=== PATIENT | female | born 1985 | race African-American/Black ===

== ENCOUNTER 2016-03-10 21:04 | Emergency (ER) | payer MEDICAID ==
[2016-03-10] MEDS ORDERED: LACTATED RINGER'S 1000 ML INJ 1,000 ML IV SCH (21:40)
[2016-03-10 22:36] LABS: BLOOD, URINE NEG (NEG); COMMENT (UR) CULT NOT INDICATED; CULTURE IF INDICATED CULT NOT INDICATED; GLUCOSE,URINE NEG (NEG); KETONE, URINE NEG (NEG); MUCUS URINE FEW /lpf (OCC); NITRITE,URINE NEG (NEG); PH, URINE 6.5 (5.0-8.5); SQUAMOUS EPITHELIAL CELL URINE 20 /hpf (0-5); URINE COLOR YELLOW (YELLW/STRAW)
--- NOTE | 2016-03-10 23:19 | PD ---
HPI Chief Complaint Abdominal pain mild shortness of breath Date Seen: Mar 10, 2016 Travel History International Travel<30 Days: No Contact w/Intl Traveler<30Days: No History of Present Illness HPI Patient is a 33 week intrauterine who presents complaining of lower abdominal pain and mild shortness of breath. Denies bleeding or ruptured membranes. He is active heart rate tracing is reactive and no regular contractions Para: 3 : 5 History Obstetric History Obstetric History 3 vag del Allergies-Medications (Allergen,Severity, Reaction): Coded Allergies: Codeine (Verified Allergy, Severe, 02/03/16) Review of Systems General / Constitutional: No: Fever, Weight Gain, Chills, Other Respiratory: Short of Breath Gastrointestinal: Abdominal Pain Physical Exam Narrative GENERAL: Well-nourished, well-developed patient. SKIN: Warm and dry. HEAD: Normocephalic and atraumatic. EYES: No scleral icterus. No injection or drainage. ENT: No nasal drainage noted. Mucous membranes pink. Airway patent. NECK: Supple, trachea midline. No JVD. CARDIOVASCULAR: Regular rate and rhythm without murmurs, gallops, or rubs. RESPIRATORY: Breath sounds equal bilaterally. No accessory muscle use. pulse ox 100 % BREASTS: Bilateral exam showed no masses , no retractions, no nipple discharge. ABDOMEN/GI: Abdomen soft, non-tender, bowel sounds present, no rebound, no guarding Gravid to [-33] weeks size Fundal Height: [-32 cm] GENITOURINARY: External Genitalia: intact and normal in appearance BUS glands: [-] Cervix: [post-] Dilatation: [-closed] Effacement: [thick-] Station: [-3 Presentation: [-] Membranes: [intact ] Uterine Contractions: [no reg-] FHT's: Category: [1-] Baseline: [-144] Reactive: [yes-] Variability: [-] Decels: [-none] EXTREMITIES: No cyanosis or edema. BACK: Nontender without obvious deformity. No CVA tenderness. NEUROLOGICAL: Awake and alert. Motor and sensory grossly within normal limits. Five out of 5 muscle strength in all muscle groups. Normal speech. Data Data Orders Urinalysis - C+S If Indicated (03/10/16 21:30) Vital Signs (Adult) .ON ADMISSION (03/10/16 21:40) ^ Labor Status (03/10/16 21:40) Lactated Ringer's 1000 Ml Inj (Lr 1000 M (03/10/16 21:40) Fentanyl Inj (Fentanyl Inj) (03/10/16 21:45) Labs Laboratory Tests Test 03/10/16 21:18 Urine Color YELLOW Urine Turbidity HAZY Urine pH 6.5 Urine Specific [place] 1.012 Urine Protein TRACE Urine Glucose (UA) NEG Urine Ketones NEG Urine Occult Blood NEG Urine Nitrite NEG Urine Bilirubin NEG Urine Urobilinogen LESS THAN 2.0 Urine Leukocyte Esterase MOD Urine RBC 4 Urine WBC 1 Urine Squamous Epithelial 20 Cells Urine Mucus FEW Microscopic Urinalysis Comment CULT NOT INDICATED MDM Interpretation(s) 33 week intrauterine with lower abdominal pain and mild shortness of breath no bleeding or ruptured membranes. She has a negative workup tonight urinalysis is negative. The heart rate tracing is reactive and there are no regular contractions appears to be in no significant pain. Plan Patient drove herself so no way to give her any narcotic pain medication she' ll drive herself home, she is to be discharged use Tylenol 1-2 by mouth liberally for pain increase her fluid intake heating pad and or hot bath bed rest being kuhn Diagnosis Diagnosis: Primary Impression: Abdominal pain during in third trimester Additional Impression: Gestational dyspnea Disposition: 01 DISCHARGE HOME Condition: Stable Patient Instructions: General Instructions, Labor (ED), Movement (ED), Abdominal Pain in (ED) Departure Forms: Tests/Procedures Dieter Salas II, MD Mar 10, 2016 23:19
== END 2016-03-11 | disposition home or self-care (01) ==
LOC: HOBED 21:04
DX: O26.893 Other specified pregnancy related conditions, third trimester (principal); R10.30 Lower abdominal pain, unspecified; R06.09 Other forms of dyspnea; Z3A.33 33 weeks gestation of pregnancy
CPT/HCPCS: 59025; 81001; 99284; J7120

== ENCOUNTER 2016-03-16 23:15 | Emergency (ER) | payer MEDICAID ==
[2016-03-17] MEDS ORDERED: LACTATED RINGER'S 1000 ML INJ 1,000 ML IV SCH (00:02)
[2016-03-17] MEDS ORDERED: TERBUTALINE INJ 1 MG/ML AMP SQ PRN (00:15)
[2016-03-17 00:34] LABS: BLOOD, URINE NEG (NEG); COMMENT (UR) CULTURE INDICATED; CULTURE IF INDICATED CULTURE INDICATED; GLUCOSE,URINE NEG (NEG); KETONE, URINE NEG (NEG); NITRITE,URINE NEG (NEG); SQUAMOUS EPITHELIAL CELL URINE 9 /hpf (0-5); URINE COLOR LIGHT-YELLOW (YELLW/STRAW)
[2016-03-17 00:37] LABS: AMPHETAMINE, URINE NEG (NEG); BARBITURATES, URINE NEG (NEG); COCAINE, URINE NEG (NEG)
[2016-03-17] MEDS ORDERED: MACR100C2 PO (01:06)
--- NOTE | 2016-03-17 09:32 | PD ---
HPI Chief Complaint Lower abdominal pain Travel History International Travel<30 Days: No Contact w/Intl Traveler<30Days: No History of Present Illness HPI Patient is 29 week intrauterine previous presents complaining of lower abdominal pain for several days. Denies bleeding rupture the membranes. Baby is active and heart rate tracing is reactive. There are no contractions Para: 1 : 2 History Past Surgical History Narrative Surgical Previous Social History Alcohol Use: No Tobacco Use: No Substance Abuse: No Allergies-Medications (Allergen,Severity, Reaction): Coded Allergies: Codeine (Verified Allergy, Severe, 02/03/16) Home Meds Active Scripts Nitrofurantoin Monohydrate Macrocrystals (Macrobid)100 Mg [id number] Mg PO BID #14 CAP Ref 0 Prov:Dieter Salas II, MD 03/17/16 Review of Systems Gastrointestinal: Abdominal Pain Physical Exam Narrative GENERAL: Well-nourished, well-developed patient.obese SKIN: Warm and dry. HEAD: Normocephalic and atraumatic. EYES: No scleral icterus. No injection or drainage. ENT: No nasal drainage noted. Mucous membranes pink. Airway patent. NECK: Supple, trachea midline. No JVD. CARDIOVASCULAR: Regular rate and rhythm without murmurs, gallops, or rubs. RESPIRATORY: Breath sounds equal bilaterally. No accessory muscle use. BREASTS: Bilateral exam showed no masses , no retractions, no nipple discharge. ABDOMEN/GI: Abdomen soft, non-tender, bowel sounds present, no rebound, no guarding Gravid to [34-] weeks size Fundal Height: [34 cm-] GENITOURINARY: External Genitalia: intact and normal in appearance BUS glands: [-] Cervix: [-]post Dilatation: [0-] Effacement: [-0] Station: [-3] Presentation: [-] Membranes: [intact ] amnio sure negative Uterine Contractions: [-none] FHT's: Category: [1-] Baseline: [144-] Reactive: [-yes] Variability: [mod-] Decels: [none] EXTREMITIES: No cyanosis or edema. BACK: Nontender without obvious deformity. No CVA tenderness. NEUROLOGICAL: Awake and alert. Motor and sensory grossly within normal limits. Five out of 5 muscle strength in all muscle groups. Normal speech. Data Data Orders Vital Signs (Adult) .ON ADMISSION (03/17/16 00:02) ^ Labor Status (03/17/16 00:02) Urinalysis - C+S If Indicated (03/17/16 00:02) Lactated Ringer's 1000 Ml Inj (Lr 1000 M (03/17/16 00:02) Ob/Psych Drug Screen, Urine (03/17/16 00:02) Terbutaline Inj (Brethine Inj) (03/17/16 00:15) Fentanyl Inj (Fentanyl Inj) (03/17/16 00:15) Urine Culture (03/16/16 23:35) Ur Bath Salts (03/16/16 23:35) Ur Heroin (03/16/16 23:35) Ur K2 Spice (03/16/16 23:35) Ur Ecstasy (03/16/16 23:35) Ur Methadone (03/16/16 23:35) Phencyclidine Urine (Pcp) (03/16/16 23:35) Fentanyl Inj (Fentanyl Inj) (03/17/16 01:00) Labs Laboratory Tests Test 03/16/16 23:35 Urine Color LIGHT-YELLOW Urine Turbidity HAZY Urine pH 7.0 Urine Specific [place] 1.010 Urine Protein NEG Urine Glucose (UA) NEG Urine Ketones NEG Urine Occult Blood NEG Urine Nitrite NEG Urine Bilirubin NEG Urine Urobilinogen 2.0 Urine Leukocyte Esterase LARGE Urine RBC 2 Urine WBC 15 Urine Squamous Epithelial 9 Cells Microscopic Urinalysis Comment CULTURE INDICATED Urine Opiates Screen NEG Urine Barbiturates Screen NEG Urine Amphetamines Screen NEG Urine Benzodiazepines Screen NEG Urine Cocaine Screen NEG Urine Cannabinoids Screen NEG Date/Time Procedure Status Source Growth 03/16/16 23:35 Urine Culture Received Urine Clean Catch Pending MDM Interpretation(s) 29 week intrauterine previous presents complaining pains no bleeding or rupture the membranes analysis consistent with UTI heart rate tracing within normal limits no contractions Plan Have patient begin oral antibiotics and increase her oral fluid intake increase bedrest at home and return for any further or worsening problems Diagnosis Diagnosis: Primary Impression: Abdominal pain during in third trimester Additional Impression: UTI (urinary tract infection) during Disposition: DISCHARGE HOME Condition: Stable Scripts Nitrofurantoin Monohydrate Macrocrystals (Macrobid)100 Mg [id number] Mg PO BID #14 CAP Ref 0 Prov:Dieter Salas II, MD 03/17/16 Patient Instructions: General Instructions Departure Forms: Tests/Procedures Dieter Salas II, MD Mar 17, 2016 09:32
[2016-03-21 13:05] LABS: BATH SALTS (MDPV) UR NEG (NEG); ECSTASY (MDMA) UR NEG (NEG); HEROIN (6-ACETYLMORPHINE) UR NEG (NEG); K2 SPICE UR NEG (NEG); OBMETHADONE UR NEG (NEG); OXYCODONE (PERCODAN) NEG (NEG); PHENCYCLIDINE URINE NEG (NEG)
== END 2016-03-17 06:45 | disposition home or self-care (01) ==
LOC: HOBED 23:15
DX: O26.893 Other specified pregnancy related conditions, third trimester (principal); R10.30 Lower abdominal pain, unspecified; O23.43 Unspecified infection of urinary tract in pregnancy, third trimester; O34.219 Maternal care for unspecified type scar from previous cesarean delivery; Z3A.29 29 weeks gestation of pregnancy
CPT/HCPCS: 59025; 80307; 81001; 87086; 96361; 96372; 96374; 99284; G0481; J3105; J7120

== ENCOUNTER 2016-05-16 12:44 | Emergency (ER) | payer MEDICAID, OTHER ==
[~2016-05-16] VITALS: Ht 157.5 cm; Wt 90.0 kg
[~2016-05-16 12:44] MED LIST: MACR100C2 PO
[2016-05-16 12:46] VITALS: BP 131/70; PULSE 126; RESP 18; TEMP 100.7; O2SAT 98
[2016-05-16 13:35] VITALS: BP 110/74; PULSE 108; PULSE 111; RESP 18; O2SAT 98
--- NOTE | 2016-05-16 13:38 | PD ---
HPI Chief Complaint: Cold / Flu Symptoms Time Seen by Provider: 13:38 Travel History International Travel<30 days: No Contact w/Intl Traveler<30days: No Traveled to known affect area: No History of Present Illness HPI 30-year-old female with history of asthma presents to emergency department for evaluation of cough, chest congestion, fever, chills, sore throat, myalgias worsening over the last 3-4 days. He also reports nausea, vomiting, diarrhea. States she's been unable to keep any food down today. Denies any abdominal pain. No chest pain or tightness. No hematochezia or hematemesis. No other symptoms to report. PFSH Past Medical History Asthma: Yes ?: Not LMP: RECENT DELIVERY Social History Alcohol Use: No Tobacco Use: No Allergies-Medications (Allergen,Severity, Reaction): Coded Allergies: Codeine (Verified Allergy, Severe, 05/16/16) Reported Meds & Prescriptions Reported Meds & Active Scripts Active Prednisone 50 Mg Tab 50 Mg PO DAILY 5 Days Albuterol Neb (Albuterol Sulfate) 2.5 Mg/3 Ml Neb 2.5 Mg NEB Q4HR NEB PRN Zofran Odt (Ondansetron Odt) 4 Mg Tab 4 Mg SL Q6HR PRN Review of Systems Except as stated in HPI: all other systems reviewed are Neg Physical Exam Narrative GENERAL: Well nourished female pt, in no acute distress SKIN: Warm and dry. HEAD: Atraumatic. Normocephalic. EYES: Pupils equal and round. No scleral icterus. No injection or drainage. ENT: No nasal bleeding or discharge. Erythematous pharynx without exudate. Mucous membranes pink and moist. NECK: Trachea midline. No JVD. CARDIOVASCULAR: Tachycardic rate and rhythm. RESPIRATORY: No accessory muscle use. Diminished; inspiratory and expiratory wheeze to auscultation. Breath sounds equal bilaterally. GASTROINTESTINAL: Abdomen soft, non-tender, nondistended. Hepatic and splenic margins not palpable. MUSCULOSKELETAL: Extremities without clubbing, cyanosis, or edema. No obvious deformities. NEUROLOGICAL: Awake and alert. No obvious cranial nerve deficits. Motor grossly within normal limits. Five out of 5 muscle strength in the arms and legs. Normal speech. PSYCHIATRIC: Appropriate mood and affect; insight and judgment normal. Data Data Last Documented VS Vital Signs Date Time Temp Pulse Resp B/P Pulse Ox O2 Delivery O2 Flow Rate FiO2 05/16/16 16:30 100 18 105/67 98 Room Air 05/16/16 14:35 99.4 Orders Complete Blood Count With Diff (05/16/16 13:34) Urinalysis - C+S If Indicated (05/16/16 13:34) Chest, Single Ap (05/16/16 13:34) Blood Glucose (05/16/16 13:34) Ecg Monitoring (05/16/16 13:34) Iv Access Insert/Monitor (05/16/16 13:34) Oximetry (05/16/16 13:34) Oxygen Administration (05/16/16 13:34) Basic Metabolic Panel (Bmp) (05/16/16 13:34) Sodium Chlor 0.9% 1000 Ml Inj (Ns 1000 M (05/16/16 13:45) Ed Urine Pregnancytest Poc (05/16/16 13:34) Acetaminophen (Tylenol) (05/16/16 13:45) Influenzae A/B Antigen (05/16/16 13:34) Methylprednisolone So Succ Inj (Solumedr (05/16/16 13:45) Ondansetron Inj (Zofran Inj) (05/16/16 14:00) Group A Rapid Strep Screen (05/16/16 13:59) Ondansetron Inj (Zofran Inj) (05/16/16 13:59) Albuterol-Ipratropium Neb (Duoneb Neb) (05/16/16 14:30) Strep Culture (Group A) (05/16/16 13:55) Urine Culture (05/16/16 14:35) Labs Laboratory Tests Test 05/16/16 05/16/16 13:55 14:35 White Blood Count 6.9 TH/MM3 Red Blood Count 4.52 MIL/MM3 Hemoglobin 11.7 GM/DL Hematocrit 35.9 % Mean Corpuscular Volume 79.4 FL Mean Corpuscular Hemoglobin 25.8 PG Mean Corpuscular Hemoglobin 32.5 % Concent Red Cell Distribution Width 17.1 % Platelet Count 273 TH/MM3 Mean Platelet Volume 8.4 FL Neutrophils (%) (Auto) 66.9 % Lymphocytes (%) (Auto) 21.1 % Monocytes (%) (Auto) 10.8 % Eosinophils (%) (Auto) 0.8 % Basophils (%) (Auto) 0.4 % Neutrophils # (Auto) 4.6 TH/MM3 Lymphocytes # (Auto) 1.4 TH/MM3 Monocytes # (Auto) 0.7 TH/MM3 Eosinophils # (Auto) 0.1 TH/MM3 Basophils # (Auto) 0.0 TH/MM3 CBC Comment DIFF FINAL Differential Comment Sodium Level 142 MEQ/L Potassium Level 3.7 MEQ/L Chloride Level 108 MEQ/L Carbon Dioxide Level 25.6 MEQ/L Anion Gap 8 MEQ/L Blood Urea Nitrogen 8 MG/DL Creatinine 0.89 MG/DL Estimat Glomerular Filtration 90 ML/MIN Rate Random Glucose 84 MG/DL Calcium Level 8.4 MG/DL Urine Color YELLOW Urine Turbidity HAZY Urine pH 6.0 Urine Specific [place] 1.032 Urine Protein 30 mg/dL Urine Glucose (UA) NEG mg/dL Urine Ketones NEG mg/dL Urine Occult Blood TRACE Urine Nitrite NEG Urine Bilirubin NEG Urine Urobilinogen LESS THAN 2.0 MG/DL Urine Leukocyte Esterase LARGE Urine RBC 7 /hpf Urine WBC 23 /hpf Urine Squamous Epithelial 5 /hpf Cells Urine Bacteria OCC /hpf Urine Hyaline Casts 1 /lpf Urine Mucus MANY /lpf Microscopic Urinalysis Comment CATH-CULTURE IND MDM Medical Decision Making Medical Screen Exam Complete: Yes Emergency Medical Condition: Yes Medical Record Reviewed: Yes Differential Diagnosis influenza vs pneumonia vs gastroenteritis vs asthma exacerbation Narrative Course 30-year-old female presents to emergency department for evaluation of flulike symptoms. Lab work is without acute concern. Urinalysis is with 30 proteinuria , large leukocyte esterase, 7 RBC, 23 WBD, occasional bacteria; culture is indicated. Pt will be started on keflex po for UTI; she is given IVF and zofran and duo neb. Verbalized improvement in symptoms. She will be discharged to follow up with a primary care provider. She agrees to return with any acute worsening of symptoms Diagnosis Primary Impression: Flu-like symptoms Additional Impressions: Asthma exacerbation UTI (urinary tract infection) Qualified Code: N39.0 - Urinary tract infection without hematuria, site unspecified Referrals: Primary Care Physician Patient Instructions: General Instructions, Influenza (DC) Departure Forms: Tests/Procedures, Work Release Enter return to work date: May 20, 2016 Additional Instructions: Rest Maintain adequate oral hydration Follow up with your primary care provider Tylenol or ibuprofen as directed on the package as needed for fever Return to ED with acute worsening of symptoms Med/Other Pt SpecificInfo: Prescription(s) given Scripts Cephalexin (Keflex)500 Mg Pyd685 Mg PO Q12H 7 Days Ref 0 Prov:Jenna Perkins 05/16/16 Prednisone 50 Mg Tab50 Mg PO DAILY 5 Days Ref 0 Prov:Jenan Perkins 05/16/16 Albuterol Neb 2.5 Mg/3 Ml Neb2.5 Mg NEB Q4HR NEB PRN (SHORTNESS OF BREATH) #60 NEBULE Ref 0 Prov:Jenna Perkins 05/16/16 Ondansetron Odt (Zofran Odt)4 Mg Tab4 Mg SL Q6HR PRN (Nausea/Vomiting) #15 TAB Ref 0 Prov:Jenna Perkins 05/16/16 Disposition: 01 DISCHARGE HOME Condition: Stable Jenna Perkins May 16, 2016 13:38
[2016-05-16] MEDS ORDERED: ACETAMINOPHEN 500 MG CPLT PO ONE (13:45)
[2016-05-16] MEDS ORDERED: methylPREDNISolone SOD SUCC 125 MG/2 ML VIAL IV PUSH ONE (13:45)
[2016-05-16] MEDS ORDERED: SODIUM CHLOR 0.9% 1000 ML INJ 1,000 ML IV ONE (13:45)
[2016-05-16] MEDS ORDERED: ONDANSETRON HCL 4 MG/2 ML VIAL ONE (13:59)
[2016-05-16] MEDS ORDERED: ONDANSETRON HCL 4 MG/2 ML VIAL IV PUSH ONE (14:00)
[2016-05-16 14:14] LABS: AUTOMATED NEUTROPHIL # 4.6 TH/MM3 (1.8-7.7); BASOPHIL % 0.4 % (0.0-2.0); EOSINOPHIL # 0.1 TH/MM3 (0-0.4); EOSINOPHIL % 0.8 % (0.0-4.0); HEMATOCRIT 35.9 % (35.0-46.0); HEMO FLAGS DIFF FINAL; LYMPH % 21.1 % (9.0-44.0); LYMPHOCYTE # 1.4 TH/MM3 (1.0-4.8); MEAN CELL VOLUME 79.4 FL (80.0-100.0); MEAN CORPUSCULAR HEMOGLOBIN 25.8 PG (27.0-34.0); MEAN CORPUSCULAR HGB CONC 32.5 % (32.0-36.0); MONO % 10.8 % (0.0-8.0); NEUT % 66.9 % (16.0-70.0); PLATELET COUNT 273 TH/MM3 (150-450); RED BLOOD COUNT 4.52 MIL/MM3 (4.00-5.30); RED CELL DISTRIBUTION WIDTH 17.1 % (11.6-17.2); WHITE BLOOD COUNT 6.9 TH/MM3 (4.0-11.0)
[2016-05-16] MEDS ORDERED: RESP: ALBUTEROL 2.5 MG/IPRATROPIUM 0.5 MG NEB (SCH) NEB ONE (14:30)
--- NOTE | 2016-05-16 14:30 | RADRPT ---
EXAM DATE/TIME: 05/16/2016 13:40 [facility] COMPARISON: No previous studies available for comparison. INDICATIONS : Patient has had flu like symptoms for three days. She has also been short of breath. MEDICAL HISTORY : None. SURGICAL HISTORY : None. ENCOUNTER: Initial ACUITY: 3 days PAIN SCORE: 0/10 LOCATION: chest FINDINGS: A single view of the chest demonstrates the lungs to be symmetrically aerated without evidence of mas s, infiltrate or effusion. The cardiomediastinal contours are unremarkable. Osseous structures are intact. CONCLUSION: No acute disease. Kj Bolton MD on May 16, 2016 at 14:29 Board Certified Radiologist. This report was verified electronically.
[2016-05-16 14:31] LABS: BICARBONATE 25.6 MEQ/L (21.0-32.0); POTASSIUM 3.7 MEQ/L (3.5-5.1)
[2016-05-16 14:35] VITALS: BP 103/63; PULSE 102; RESP 18; TEMP 99.4; O2SAT 98
[2016-05-16 15:09] LABS: BACTERIA, URINE OCC /hpf; BLOOD, URINE TRACE (NEG); COMMENT (UR) CATH-CULTURE IND; CULTURE IF INDICATED CATH CULTURE IND; GLUCOSE,URINE NEG (NEG); HYALINE CAST, URINE 1 /lpf (RARE); KETONE, URINE NEG (NEG); MUCUS URINE MANY /lpf (OCC); NITRITE,URINE NEG (NEG); SQUAMOUS EPITHELIAL CELL URINE 5 /hpf (0-5); URINE COLOR YELLOW (YELLW/STRAW)
[2016-05-16] MEDS ORDERED: ZOFR4TAB3 SL (15:23)
[2016-05-16] MEDS ORDERED: ALBU0.08 NEB (15:25)
[2016-05-16] MEDS ORDERED: PRED50 PO (15:26)
[2016-05-16 16:30] VITALS: BP 105/67; PULSE 100; RESP 18; O2SAT 98
[2016-05-16] MEDS ORDERED: CEPH-460 PO (20:20)
== END 2016-05-16 16:31 | disposition home or self-care (01) ==
LOC: NEPC 12:44
DX: J45.901 Unspecified asthma with (acute) exacerbation (principal); N39.0 Urinary tract infection, site not specified; B96.89 Other specified bacterial agents as the cause of diseases classified elsewhere
CPT/HCPCS: 71010; 80048; 81001; 84703; 85025; 87081; 87086; 87804; 87880; 94664; 96361; 96374; 96375; 99283; J2405; J2930; J7030

== ENCOUNTER 2017-05-30 10:04 | Emergency (ER) | payer OTHER ==
[~2017-05-30 10:04] MED LIST changes: +ALBU0.08 NEB; +CEPH-460 PO; -MACR100C2 PO; +PRED50 PO; +ZOFR4TAB3 SL
[2017-05-30 10:17] VITALS: BP 126/59; PULSE 87; RESP 16; TEMP 98.2; O2SAT 100
[2017-05-30] MEDS ORDERED: SODIUM CHLORIDE 0.9% FLUSH 10 ML FLUSH IV FLUSH PRN (12:30)
--- NOTE | 2017-05-30 12:59 | PD ---
HPI Chief Complaint: Related Problem Time Seen by Provider: 12:28 Travel History International Travel<30 days: No Contact w/Intl Traveler<30days: No Traveled to known affect area: No History of Present Illness HPI Patient 31-year-old female presents emergency department early gestation probably 7-8 weeks gestational age by last menstrual. For evaluation of low pelvic pain. Patient denies any vaginal bleeding vaginal discharge or loss of fluid. She has not had an ultrasound yet this is not established with an [employer] INST[employer]ER. Non-smoker nondrinker. States the pain is cramping, mild to moderate, context as above, associated signs and symptoms as above PFSH Past Medical History Asthma: Yes ?: LMP: 04/11/17 : 5 Para: 4 Miscarriage: 1 : 0 Past Surgical History Abdominal Surgery: Yes (REMOVAL OF GALLSTONES) Social History Alcohol Use: No Tobacco Use: No Substance Use: No Allergies-Medications (Allergen,Severity, Reaction): Coded Allergies: codeine (Unverified Allergy, Severe, 10/22/16) Reported Meds & Prescriptions Reported Meds & Active Scripts Active One Tablet ( Vit #108/Iron/FA) 30 Mg Iron-800 Mcg Tablet 1 Tab PO DAILY 30 Days Metrogel Vaginal Gel (Metronidazole Vaginal Gel) 0.75 % Gel 1 Appl VAGINAL HS 7 Days Macrobid (Nitrofurantoin Monoh/Nitrofur Macro) 100 Mg Cap 100 Mg PO BID 7 Days Keflex (Cephalexin) 500 Mg Cap 500 Mg PO Q12H 7 Days Prednisone 50 Mg Tab 50 Mg PO DAILY 5 Days Albuterol Neb (Albuterol Sulfate) 2.5 Mg/3 Ml Neb 2.5 Mg NEB Q4HR NEB PRN Zofran Odt (Ondansetron Odt) 4 Mg Tab 4 Mg SL Q6HR PRN Review of Systems Except as stated in HPI: all other systems reviewed are Neg Physical Exam Narrative GENERAL: Well-developed well-nourished, minimal discomfort SKIN: Focused skin assessment warm/dry. HEAD: Atraumatic. Normocephalic. EYES: Pupils equal and round. No scleral icterus. No injection or drainage. ENT: No nasal bleeding or discharge. Mucous membranes pink and moist. NECK: Trachea midline. No JVD. CARDIOVASCULAR: Regular rate and rhythm. No murmur appreciated. RESPIRATORY: No accessory muscle use. Clear to auscultation. Breath sounds equal bilaterally. GASTROINTESTINAL: Abdomen soft, non-tender, nondistended. Hepatic and splenic margins not palpable. . GENITOURINARY: Exam performed with female nurse trust officer present all times, no vaginal lesion no vaginal bleeding, cervix is closed, no cervical motion tenderness no bimanual tenderness, there was a moderate amount of discharge which is white and smooth consistent with BV. MUSCULOSKELETAL: No obvious deformities. No clubbing. No cyanosis. No edema. NEUROLOGICAL: Awake and alert. No obvious cranial nerve deficits. Motor grossly within normal limits. Normal speech. PSYCHIATRIC: Appropriate mood and affect; insight and judgment normal. Data Data Last Documented VS Vital Signs Date Time Temp Pulse Resp B/P (MAP) Pulse Ox O2 Delivery O2 Flow Rate FiO2 05/30/17 13:08 98 Room Air 05/30/17 10:17 98.2 87 16 126/59 (81) Orders Orders Beta Hcg (Quant/Titer) (05/30/17 12:28) Complete Blood Count With Diff (05/30/17 12:28) Comprehensive Metabolic Panel (05/30/17 12:28) Prothrombin Time / Inr (Pt) (05/30/17 12:28) Act Partial Throm Time (Ptt) (05/30/17 12:28) Urinalysis - C+S If Indicated (05/30/17 12:28) Iv Access Insert/Monitor (05/30/17 12:28) Ecg Monitoring (05/30/17 12:28) Oximetry (05/30/17 12:28) Sodium Chloride 0.9% Flush (Ns Flush) (05/30/17 12:30) Ed Urine Pregnancytest Poc (05/30/17 12:28) Wet Prep Profile (05/30/17 12:28) Gc And Chlamydia Pcr (05/30/17 12:28) Abo/Rh Blood Type (05/30/17 12:28) Urine Culture (05/30/17 12:45) Us Pelvis (Ques Preg/Ectopic) (05/30/17 13:13) Ed Discharge Order (05/30/17 15:56) Labs Laboratory Tests Test 05/30/17 12:45 05/30/17 12:59 White Blood Count 11.6 TH/MM3 Red Blood Count 4.36 MIL/MM3 Hemoglobin 13.3 GM/DL Hematocrit 38.2 % Mean Corpuscular Volume 87.5 FL Mean Corpuscular Hemoglobin 30.4 PG Mean Corpuscular Hemoglobin Concent 34.7 % Red Cell Distribution Width 14.3 % Platelet Count 297 TH/MM3 Mean Platelet Volume 8.2 FL Neutrophils (%) (Auto) 71.8 % Lymphocytes (%) (Auto) 21.2 % Monocytes (%) (Auto) 4.8 % Eosinophils (%) (Auto) 1.6 % Basophils (%) (Auto) 0.6 % Neutrophils # (Auto) 8.3 TH/MM3 Lymphocytes # (Auto) 2.5 TH/MM3 Monocytes # (Auto) 0.6 TH/MM3 Eosinophils # (Auto) 0.2 TH/MM3 Basophils # (Auto) 0.1 TH/MM3 CBC Comment DIFF FINAL Differential Comment Prothrombin Time 10.0 SEC Prothromb Time International Ratio 1.0 RATIO Activated Partial Thromboplast Time 25.3 SEC Urine Color LIGHT-YELLOW Urine Turbidity HAZY Urine pH 6.5 Urine Specific [place] 1.005 Urine Protein NEG mg/dL Urine Glucose (UA) NEG mg/dL Urine Ketones NEG mg/dL Urine Occult Blood NEG Urine Nitrite NEG Urine Bilirubin NEG Urine Urobilinogen LESS THAN 2.0 MG/DL Urine Leukocyte Esterase LARGE Urine RBC 13 /hpf Urine WBC 10 /hpf Urine Squamous Epithelial Cells 17 /hpf Urine Bacteria FEW /hpf Microscopic Urinalysis Comment CULTURE INDICATED Blood Urea Nitrogen 5 MG/DL Creatinine 0.68 MG/DL Random Glucose 81 MG/DL Total Protein 7.5 GM/DL Albumin 3.4 GM/DL Calcium Level 8.7 MG/DL Alkaline Phosphatase 72 U/L Aspartate Amino Transf (AST/SGOT) 15 U/L Alanine Aminotransferase (ALT/SGPT) 32 U/L Total Bilirubin 0.6 MG/DL Sodium Level 138 MEQ/L Potassium Level 3.4 MEQ/L Chloride Level 104 MEQ/L Carbon Dioxide Level 26.3 MEQ/L Anion Gap 8 MEQ/L Estimat Glomerular Filtration Rate 121 ML/MIN Human Chorionic Gonadotropin, Quant 65568 MIU/ML Clue Cells (Wet Prep) PRESENT Vaginal Trichomonas (Wet Prep) NONE SEEN Vaginal Yeast (Wet Prep) NONE SEEN Chlamydia trachomatis DNA (PCR) NOT DETECTED Neisseria gonorrhoeae DNA (PCR) NOT DETECTED MDM Medical Decision Making Medical Screen Exam Complete: Yes Emergency Medical Condition: Yes Differential Diagnosis BV, CV, ectopic , round ligament pain. Narrative Course Patient room to the emergency department, sign symptoms consistent with BV, she did have bacteria as well, nitrate negative urine however. Patient had an ultrasound confirming intrauterine at about 6 weeks 4 days. She is more comfortable after Tylenol, patient reassured, will place on Macrobid and MetroGel. Discussed follow-up with [employer] INST[employer]ER, vitamins, no smoking or drinking no drugs, discussed return to ED criteria. She is stable for discharge Diagnosis Primary Impression: Bacterial vaginosis Additional Impression: UTI (urinary tract infection) Med/Other Pt SpecificInfo: Prescription(s) given Scripts Vit #108/Iron/FA ( One Tablet) 30 Mg Iron-800 Mcg Tablet 1 TAB PO DAILY for 30 Days, #30 9 Refills Prov: Ashok Loco MD 05/30/17 Metronidazole Vaginal Gel (Metrogel Vaginal Gel) 0.75 % Gel 1 APPL VAGINAL HS for Infection for 7 Days, #1 TUBE 0 Refills Prov: Ashok Loco MD 05/30/17 Nitrofurantoin Monohydrate Macrocrystals (Macrobid) 100 Mg Cap 100 MG PO BID for Infection for 7 Days, #14 CAP 0 Refills Prov: Ashok Loco MD 05/30/17 Disposition: 01 DISCHARGE HOME Condition: Stable Ashok Loco MD May 30, 2017 12:59
[2017-05-30 13:08] VITALS: O2SAT 98
[2017-05-30 13:23] LABS: AUTOMATED NEUTROPHIL # 8.3 TH/MM3 (1.8-7.7); BASOPHIL # 0.1 TH/MM3 (0-0.2); BASOPHIL % 0.6 % (0.0-2.0); EOSINOPHIL # 0.2 TH/MM3 (0-0.4); EOSINOPHIL % 1.6 % (0.0-4.0); HEMATOCRIT 38.2 % (35.0-46.0); HEMOGLOBIN 13.3 GM/DL (11.6-15.3); LYMPH % 21.2 % (9.0-44.0); LYMPHOCYTE # 2.5 TH/MM3 (1.0-4.8); MEAN CELL VOLUME 87.5 FL (80.0-100.0); MEAN CORPUSCULAR HEMOGLOBIN 30.4 PG (27.0-34.0); MEAN CORPUSCULAR HGB CONC 34.7 % (32.0-36.0); MEAN PLATELET VOLUME 8.2 FL (7.0-11.0); MONO % 4.8 % (0.0-8.0); MONOCYTE # 0.6 TH/MM3 (0-0.9); NEUT % 71.8 % (16.0-70.0); PLATELET COUNT 297 TH/MM3 (150-450); RED BLOOD COUNT 4.36 MIL/MM3 (4.00-5.30); RED CELL DISTRIBUTION WIDTH 14.3 % (11.6-17.2); WHITE BLOOD COUNT 11.6 TH/MM3 (4.0-11.0)
[2017-05-30 13:27] LABS: BACTERIA, URINE FEW /hpf; BILIRUBIN, URINE NEG (NEG); BLOOD, URINE NEG (NEG); GLUCOSE,URINE NEG (NEG); KETONE, URINE NEG (NEG); NITRITE,URINE NEG (NEG); PH, URINE 6.5 (5.0-8.5); SQUAMOUS EPITHELIAL CELL URINE 17 /hpf (0-5); URINE COLOR LIGHT-YELLOW (YELLW/STRAW); URINE LEUKOCYTE ESTERASE LARGE (NEG)
[2017-05-30 13:42] LABS: ALBUMIN 3.4 GM/DL (3.4-5.0); AST (GOT) 15 U/L (15-37); BICARBONATE 26.3 MEQ/L (21.0-32.0); BLOOD UREA NITROGEN 5 MG/DL (7-18); CALCIUM 8.7 MG/DL (8.5-10.1); CHLORIDE 104 MEQ/L (98-107); CREATININE 0.68 MG/DL (0.50-1.00); GLOMERULAR FILTRATION RATE 121 ML/MIN (>89); GLUCOSE,RANDOM 81 MG/DL (74-106); SODIUM (NA) 138 MEQ/L (136-145)
[2017-05-30 13:59] LABS: ALKALINE PHOSPHATASE 72 U/L (45-117); ALT (GPT) 32 U/L (10-53); TOTAL BILIRUBIN ADULT 0.6 MG/DL (0.2-1.0); TOTAL PROTEIN 7.5 GM/DL (6.4-8.2)
--- NOTE | 2017-05-30 15:44 | RADRPT ---
EXAM DATE/TIME: 05/30/2017 13:45 [facility] COMPARISON: No previous studies available for comparison. INDICATIONS : Pain with . LAB(S): Beta-hC,858 MEDICAL HISTORY : Asthma. SURGICAL HISTORY : Gallstone removal. ENCOUNTER: Initial ACUITY: 1 day PAIN SCORE: 6/10 LOCATION: Bilateral pelvis MEASUREMENTS: UTERUS: 11.6 x 5.4 x 6.8 cm cm ENDOMETRIAL STRIPE: 13 mm RIGHT OVARY: 3.4 x 1.5 x 1.7 cm LEFT OVARY: 3.4 x 2.5 x 3.1 cm CROWN RUMP LENGTH: 0.6 cm = 6 WKS 3 DAYS FHR: 123 BPM FINDINGS: UTERUS: 6 week 3 day IUP otherwise unremarkable uterus RIGHT OVARY: Ovary contains no mass or significant cystic lesion. LEFT OVARY: 2.1 cm simple cyst MISCELLANEOUS: No free fluid. CONCLUSION: 6 week 3 day IUP Tacho Diaz MD FACR on May 30, 2017 at 15:40 Board Certified Radiologist. This report was verified electronically.
[2017-05-30] MEDS ORDERED: METR0.7528 VAGINAL (15:54)
[2017-05-30] MEDS ORDERED: MACR100C2 PO (15:54)
[2017-05-30] MEDS ORDERED: PREN1TAB PO (15:55)
== END 2017-05-30 16:13 | disposition home or self-care (01) ==
LOC: NEPD 10:04
DX: O23.591 Infection of other part of genital tract in pregnancy, first trimester (principal); N76.0 Acute vaginitis; B96.89 Other specified bacterial agents as the cause of diseases classified elsewhere; O23.41 Unspecified infection of urinary tract in pregnancy, first trimester; O99.511 Diseases of the respiratory system complicating pregnancy, first trimester; J45.909 Unspecified asthma, uncomplicated; Z3A.01 Less than 8 weeks gestation of pregnancy
CPT/HCPCS: 76700; 80053; 81001; 84702; 84703; 85025; 85610; 85730; 86900; 86901; 87086; 87210; 87491; 87591; 99284